=== PATIENT | female | born 1970 | race Two or more races ===

== ENCOUNTER 2020-12-10 10:45 | Inpatient (IN) | payer OTHER ==
[~2020-12-10] VITALS: Ht 152.4 cm; Wt 65.8 kg
[~2020-12-10 10:45] MED LIST: ADVAIR 2501 DISK W/1; CLONAZEPAM0.5 MG; MICRO-K10 MEQ PO; ORPH100T PO; TRAM1TAB98 PO; TUSSIN15 MG/5 M1
[2020-12-10] MEDS ORDERED: DIOVAN40 MG PO (13:37)
[2020-12-10] MEDS ORDERED: ATORVASTATIN CA10 MG PO (13:37)
[2020-12-10] MEDS ORDERED: FENOFIBRATE50 MG PO (13:37)
[2020-12-17] MEDS ORDERED: HYDROCHLOROTHIA25 MG (08:00)
[2020-12-17] MEDS ORDERED: OMEPRAZOLE20 MG (08:00)
[2020-12-17] MEDS ORDERED: FENOFIBRATE48 MG (08:01)
[2020-12-17] MEDS ORDERED: VALSARTAN160 MG (08:01)
[2020-12-17] MEDS ORDERED: ATORVASTATIN CA20 MG (08:01)
[2020-12-20] MEDS ORDERED: NEURONTIN600 MG PO (06:48)
[2020-12-20] MEDS ORDERED: CODE1TAB37 PO (06:48)
[2020-12-20] MEDS ORDERED: SIMETHICONE125 M1 PO (06:48)
== END 2020-12-20 11:20 | disposition home or self-care (01) | DRG 743 ==
LOC: OB/GYN 12-17 06:15 → O/R 12-17 06:15 → OB/GYN 12-17 10:45
PROVIDERS: ADMIT Obstetrics & Gynecology; ATTEND Obstetrics & Gynecology
PROC: 0UT20ZZ Resection of Bilateral Ovaries, Open Approach (ICD-10-PCS; 2020-12-17)
PROC: 0UT70ZZ Resection of Bilateral Fallopian Tubes, Open Approach (ICD-10-PCS; 2020-12-17)
PROC: 0UT90ZZ Resection of Uterus, Open Approach (ICD-10-PCS; principal; 2020-12-17 12:45)
DX: N72 Inflammatory disease of cervix uteri (principal); N80.0 Endometriosis of uterus; D25.0 Submucous leiomyoma of uterus; D25.1 Intramural leiomyoma of uterus; D25.2 Subserosal leiomyoma of uterus; N94.89 Other specified conditions associated with female genital organs and menstrual cycle; N83.8 Other noninflammatory disorders of ovary, fallopian tube and broad ligament; I10 Essential (primary) hypertension